=== PATIENT | female | born 1965 | race Two or more races ===

== ENCOUNTER 2024-06-28 10:23 | Inpatient (IN) | payer BC, SELFPAY ==
[2024-06-28] VITALS (20 sets, daily range): BP systolic 110–149; BP diastolic 59–77; PULSE 62–85; TEMP 36.6–36.9; O2SAT 92–99; BMI 34.4; BMI 34.6
--- NOTE | 2024-06-28 11:25 | CT_ITS ---
The [address] [address] Patient Name: FARNAZ JUSTICE MRN: [id number] date: 1965 Sex: F Assigned Patient Location: ER Current Patient Location: ER Accession/Order Number: [id number] Exam Date: 06/28/2024 12:23 Report Date: 06/28/2024 13:04 At the request of: GABRIELLA QUINTERO Procedure: CT abdomen pelvis w con EXAMINATION: CT abdomen pelvis w con HISTORY: abdominal pain COMPARISON: No relevant comparison available. TECHNIQUE: CT images were created with IV contrast. Axial, Coronal, and Sagittal images. Dose reduction techniques were achieved by using automated exposure control and/or adjustment of mA and/or kV according to patient size and/or use of iterative reconstruction technique. FINDINGS: LUNG BASES: Dependent opacities, atelectasis is favored LIVER: Diffuse hypoattenuation consistent with hepatic steatosis BILIARY: Suspected gallbladder wall thickening along the fundus, axial image 47. Small amount of pericholecystic fluid. Layering hyperdensity likely gallbladder sludge. PANCREAS: Mild peripancreatic stranding SPLEEN: No enlargement or focal lesion. ADRENALS: 8mm soft tissue density left adrenal nodule KIDNEYS: No mass, obstruction, or calcification. BOWEL/MESENTERY: No visible mass, obstruction, or bowel wall thickening. AORTA/VASCULAR: No aneurysm or dissection. RETROPERITONEUM: No mass or adenopathy. LYMPH NODES: No adenopathy. URINARY BLADDER: No visible focal wall thickening, lesion, or calculus. PELVIC ORGANS: Hysterectomy ABDOMINAL WALL: No mass or hernia. BONES: No bony lesion or fracture. OTHER: Negative. CT/CT abdomen pelvis w con IMPRESSION: Peripancreatic and pericholecystic inflammatory changes. I favor acute pancreatitis without evidence of necrosis. The differential diagnosis would include acute cholecystitis Electronically authenticated by: NICHO DODSON Date: 06/28/2024 13:04
--- NOTE | 2024-06-28 11:26 | ECG_ITS ---
The [facility] Test Date: 2024-06-28 Pat Name: FARNAZ JUSTICE Department: Room: - Gender: Female [employer] Coordinator: : 1965 Requested By: Samara Kimball Order Number: [id number] Reading MD: ELDOIA MIKE Measurements Intervals [place] Rate: 62 P: 57 NM: 160 QRS: 27 QRSD: 94 T: 38 QT: 426 QTc: 430 Interpretive Statements 1100 Sinus rhythm [address] depression 9130 borderline ECG No previous ECG available for comparison Electronically Signed On 06-28-2024 22:44:40 EDT by ELODIA MIKE
[2024-06-28] MEDS: MORPHINE SULFATE 2 MG/ML SYRINGE 4 MG IV (11:30)
[2024-06-28] MEDS: ONDANSETRON PF 4 MG/2 ML VIAL IV (11:30)
[2024-06-28 11:34] LABS: Basophils Absolute Auto 0.1 10^3/uL (0.0-0.1); Basophils Percent Auto 0.4 % (0.2-2.0); Eosinophils Absolute Auto 0.1 10^3/uL (0.0-0.7); Eosinophils Percent Auto 0.4 % (0.9-7.0); Hemoglobin 13.9 g/dL (12.0-16.0); Immature Granulocytes Abs Auto 0.06 10^3/uL (0.00-0.03); Immature Granulocytes Pct Auto 0.5 % (0.0-0.5); Lymphocytes Percent Auto 7.7 % (20.5-60.0); Mean Corpuscular HGB Conc 30.9 g/dL (29.9-35.2); Mean Corpuscular Hemoglobin 28.3 pg (26.7-34.0); Mean Corpuscular Volume 91.6 fL (81.0-99.0); Mean Platelet Volume 10.7 fL (9.5-13.5); Monocytes Absolute Auto 0.6 10^3/uL (0.3-0.8); Monocytes Percent Auto 5.1 % (1.7-12.0); Neutrophils Absolute Auto 10.9 10^3/uL (1.4-6.5); Neutrophils Percent Auto 85.9 % (43.0-75.0); Platelet Count 257 10^3/uL (150-450); Red Blood Count 4.91 10^6/uL (4.20-5.40); Red Cell Distribution Width 12.6 % (11.0-15.0); White Blood Count 12.7 10^3/uL (4.0-11.0)
[2024-06-28 11:49] LABS: Lactate/Lactic Acid 1.6 mmol/L (0.4-2.0)
[2024-06-28 11:50] LABS: Alanine Aminotransferase 103 U/L (14-59); Albumin Globulin Ratio 1.1; Albumin Level 4.2 g/dL (3.4-5.0); Alkaline Phosphatase 57 U/L (46-116); Anion Gap 14.7; Aspartate Amino Transferase 113 U/L (15-37); Bilirubin Total 0.8 mg/dL (0.2-1.0); Calcium 9.4 mg/dL (8.5-10.1); Carbon Dioxide 24.7 mmol/L (21.0-32.0); Chloride 106 mmol/L (98-107); Estimated GFR (African America >60 (>=60 mL/min/1.73m^2); Estimated GFR (Non-African Ame >60 (>=60 mL/min/1.73m^2); Globulin 3.8 g/dL; Glucose 156 mg/dL (74-106); Potassium 3.4 mmol/L (3.5-5.1); Sodium 142 mmol/L (136-145); Troponin I High Sensitivity <4.0 pg/mL (4.0-51.3)
[2024-06-28] MEDS: LACTATED RINGER'S SOLUTION 1,000 ML 1000 ML IV (12:39)
--- NOTE | 2024-06-28 13:14 | US_ITS ---
The [address] [address] Patient Name: FARNAZ JUSTICE MRN: [id number] date: 1965 Sex: F Assigned Patient Location: ER Current Patient Location: ER Accession/Order Number: [id number] Exam Date: 06/28/2024 13:25 Report Date: 06/28/2024 14:53 At the request of: GABRIELLA QUINTERO Procedure: US right upper quadrant EXAM: US right upper quadrant HISTORY: GB eval COMPARISON: None. TECHNIQUE: Grayscale, color and Doppler FINDINGS: The liver is prominent in size measuring 19.9 cm in length. Normal contour. Diffuse increase in hepatic echotexture with no focal mass. Hepatopedal flow in the main portal vein with velocity of 30 cm/s. The visualized pancreatic body is heterogeneous with no focal mass The gallbladder is enlarged in size measuring 11.8 cm. Echogenic layering material likely cholelithiasis and gallbladder sludge. The gallbladder wall is thickened measuring 7.1 mm. Negative sonographic Yang sign. The common bile duct measures 9.1 mm. The right kidney is normal measuring 10.4 x 5.5 x 4.9 cm. No solid mass or hydronephrosis US/US right upper quadrant IMPRESSION: Cholecystitis with underlying cholelithiasis/gallbladder sludge Hepatic steatosis Electronically authenticated by: NICHO DODSON Date: 06/28/2024 14:53
[2024-06-28] MEDS: MORPHINE SULFATE 4 MG/ML VIAL IV (15:16)
[2024-06-28] MEDS: PIPERACILLIN SODIUM/TAZOBACTAM 4.5 GM in 0.9 % SODIUM CHLORIDE 50 ML IV (15:17)
--- NOTE | 2024-06-28 16:08 | ED.GENADUL1 ---
HPI HPI - General Adult General Chief complaint: Abdominal Pain Stated complaint: NAUSEA, ABDOMINAL PAIN Time Seen by Provider: 06/28/24 10:39 Source: patient Mode of arrival: walk-in Limitations: no limitations History of Present Illness HPI narrative: 59-year-old female to the emergency department with chief complaint of epigastric pain. Patient reports last evening she began to experience a boring epigastric pain that went through to her back. It has been persistent since onset. It is worse with eating. She denies any fever, sweats, chills. She has had nausea and vomiting overnight. She has never had anything like this before. She does have a gallbladder. Related Data Home Medications ?Medication ?Instructions ?Recorded ?Confirmed atenolol 50 mg tablet 50 mg PO BEDTIME 06/28/24 06/28/24 ergocalciferol (vitamin D2) 1,250 1,250 mcg PO .q week 06/28/24 06/28/24 mcg (50,000 unit) capsule levothyroxine 50 mcg tablet 50 mcg PO DAILY 06/28/24 06/28/24 sertraline 50 mg tablet 75 mg PO DAILY 06/28/24 06/28/24 simvastatin 20 mg tablet 20 mg PO BEDTIME 06/28/24 06/28/24 Allergies Allergy/AdvReac Type Severity Reaction Status Date / Time codeine AdvReac Severe Nausea Verified 06/28/24 10:30 Opioid HPI Opioid Management Most Recent Opioid Data: Last Pain Scale 3 06/28/24 15:16 06/28/24 Last MAR Pain Assessment 06/28/24 15:16 Last ORT Total Score 0 06/28/24 16:03 06/28/24 Last ORT Risk Category Low Risk 06/28/24 16:03 06/28/24 Review of Systems ROS Status of ROS 10 or more systems reviewed and unremarkable except as noted in history and below PFSH PFSH Social History Little interest or pleasure in doing things: not at all Feeling down, depressed, or hopeless: not at all Exam Narrative Exam Narrative: VITALS: I have reviewed the triage vital signs. GENERAL: Uncomfortable appearing elderly female holding epigastrium NEURO: Alert and oriented. Moves all extremities. Face is symmetric and expressive. EYES: PERRL. No scleral icterus or conjunctival injection. No discharge. HENT: Normocephalic, atraumatic. Hearing is grossly intact. Nares grossly patent and without discharge. Mucous membranes moist. NECK: No JVD. Patient moves neck without restriction. CARDIO: Rhythm regular. Normal rate. No murmur, rub, or gallop. Pulses equal bilaterally in the upper and lower extremity. No lower extremity edema. PULM: Lungs clear to auscultation in all gao. No wheezes, rales, or rhonchi. No conversational dyspnea. No splinting, stridor, or accessory muscle use. GI/: Abdomen is soft. Epigastric tenderness. Normoactive bowel sounds. EXTREMITIES: Symmetric muscle bulk. No joint swelling. No clubbing, cyanosis, or deformity. SKIN: Warm and dry. Normal turgor. No rash or lesions appreciated. PSYCH: Mood, affect, and interaction is appropriate to the setting. Constitutional Vital Signs, click to edit/add: Last Vital Signs Temp 97.8 F 06/28/24 10:27 Pulse 85 06/28/24 15:30 Resp 21 H 06/28/24 15:30 BP 129/77 06/28/24 15:00 Pulse Ox 97 06/28/24 15:30 Course Vital Signs Vital signs: Vital Signs Temperature 97.8 F 06/28/24 10:27 Pulse Rate 76 06/28/24 10:27 Respiratory Rate 20 06/28/24 10:27 Blood Pressure 124/61 06/28/24 10:27 Pulse Oximetry 98 06/28/24 10:27 Temperature 97.8 F 06/28/24 10:27 Pulse Rate 85 06/28/24 15:30 Respiratory Rate 21 H 06/28/24 15:30 Blood Pressure 129/77 06/28/24 15:00 Pulse Oximetry 97 06/28/24 15:30 Medical Decision Making [facility] Narrative Medical decision making narrative: 59-year-old female to the emergency department chief complaint of abdominal pain. Vital stable, the patient is afebrile. She does have significant epigastric tenderness. Morphine and Zofran ordered for symptoms. Basic labs, EKG, CT scan ordered. Patient agrees with this plan. She does have a mild leukocytosis. No major electrolyte abnormalities. Her ALT AST are mildly elevated. Normal alkaline phosphatase. Normal bilirubin. Her lipase is significantly elevated. CT scan concerning for pancreatitis and cholecystitis. No evidence of necrotizing pancreatitis or acute complication. Ultrasound is ordered to better characterize is consistent with cholecystitis. Mildly dilated common bile duct. Case was discussed with the on-call surgeon Dr. Lilly. He recommended antibiotics. He will see the patient in consultation. Recommend admission to the hospitalist. Plan for cholecystectomy after her pancreatitis has improved. Patient was reexamined. Additional dose of morphine was ordered as her pain is returning. Case was discussed with Dr. Espinal who agreed admit this patient to his service. Medical Records Medical records reviewed: Yes I reviewed the patient's medical records Lab Data Lab results reviewed: Yes I reviewed the patient's lab results Labs: Lab Results 06/28/24 Range/Units 10:35 WBC 12.7 H (4.0-11.0) 10^3/uL RBC 4.91 (4.20-5.40) 10^6/uL Hgb 13.9 (12.0-16.0) g/dL Hct 45.0 (36.0-48.0) % MCV 91.6 (81.0-99.0) fL MCH 28.3 (26.7-34.0) pg MCHC 30.9 (29.9-35.2) g/dL RDW 12.6 (11.0-15.0) % Plt Count 257 (150-450) 10^3/uL MPV 10.7 (9.5-13.5) fL Neut % (Auto) 85.9 H (43.0-75.0) % Lymph % (Auto) 7.7 L (20.5-60.0) % [place] % (Auto) 5.1 (1.7-12.0) % Eos % (Auto) 0.4 L (0.9-7.0) % Baso % (Auto) 0.4 (0.2-2.0) % Neut # (Auto) 10.9 H (1.4-6.5) 10^3/uL Lymph # (Auto) 1.0 L (1.2-3.8) 10^3/uL [place] # (Auto) 0.6 (0.3-0.8) 10^3/uL Eos # (Auto) 0.1 (0.0-0.7) 10^3/uL Baso # (Auto) 0.1 (0.0-0.1) 10^3/uL Abs Immat Gran (auto) 0.06 H (0.00-0.03) 10^3/uL Imm/Tot Granulo (auto) 0.5 (0.0-0.5) % Sodium 142 (136-145) mmol/L Potassium 3.4 L (3.5-5.1) mmol/L Chloride 106 (98-107) mmol/L Carbon Dioxide 24.7 (21.0-32.0) mmol/L Anion Gap 14.7 BUN 16.0 (7.0-18.0) mg/dL Creatinine 0.89 (0.55-1.02) mg/dL Est GFR ( Amer) >60 (>=60 mL/min/1.73m^2) Est GFR (Non-Af Amer) >60 (>=60 mL/min/1.73m^2) BUN/Creatinine Ratio 18.0 Glucose 156 H (74-106) mg/dL Lactate 1.6 (0.4-2.0) mmol/L Calcium 9.4 (8.5-10.1) mg/dL Total Bilirubin 0.8 (0.2-1.0) mg/dL AST 113 H (15-37) U/L ALT 103 H (14-59) U/L Alkaline Phosphatase 57 (46-116) U/L Troponin I High Sens <4.0 L (4.0-51.3) pg/mL Total Protein 8.0 (6.4-8.2) g/dL Albumin 4.2 (3.4-5.0) g/dL Globulin 3.8 g/dL Albumin/Globulin Ratio 1.1 Lipase 4361.0 H* (16.0-77.0) U/L Imaging Data CT scan - abdomen: Attestation: I have reviewed the pertinent imaging results. Radiologist's impression: ITS Impressions Abdomen/Pelvis CT 06/28/24 11:25 IMPRESSION: Peripancreatic and pericholecystic inflammatory changes. I favor acute pancreatitis without evidence of necrosis. The differential diagnosis would include acute cholecystitis Electronically authenticated by: NICHO DODSON Date: 06/28/2024 13:04 Upper Quadrant Ultrasound 06/28/24 13:14 IMPRESSION: Cholecystitis with underlying cholelithiasis/gallbladder sludge Hepatic steatosis Electronically authenticated by: NICHO DODSON Date: 06/28/2024 14:53 ECG Data Attestation: I personally reviewed and interpreted this ECG as follows: (Normal sinus rhythm. No STEMI. Normal QTc. ) Discharge Plan Discharge Chief Complaint: Abdominal Pain Clinical Impression: Acute gallstone pancreatitis, Acute cholecystitis Patient Disposition: Admitted As Inpatient Time of Disposition Decision: 16:26 Condition: Good Discharge Date/Time: 06/28/24 15:55
[2024-06-28] MEDS: PANTOPRAZOLE SODIUM 40 MG VIAL IV (19:34)
[2024-06-28] MEDS: LACTATED RINGER'S SOLUTION 1,000 ML 100 ML IV (19:35)
--- NOTE | 2024-06-28 19:46 | PC.NURSE ---
compression socks applied at this time
--- NOTE | 2024-06-28 19:47 | P.HP_ITS ---
HPI H&P: HPI History of Present Illness Chief complaint: NAUSEA, ABDOMINAL PAIN, Gallstone, Pancreatitis Narrative: Patient was seen and evaluated in the emergency room secondary to increasing nausea and abdominal pain. Workup in the emergency room found patient to have acute gallstone pancreatitis. She is admitted for workup and treatment of same When I saw patient up on the medical surgical floor, she was resting comfortably in bed, pain is improved since admission. No more nausea. Discussed with her the need to maintain n.p.o. status. Discussed the fact that she would likely have surgery during this hospitalization assuming her pancreas and liver enzymes improve quickly Opioid HPI Opioid Management Most Recent Pain and Opioid Data: Last Pain Scale 3 06/28/24 15:16 06/28/24 Last Pain Assessment 06/28/24 19:00 Last MAR Pain Assessment 06/28/24 15:16 Last ORT Total Score 0 06/28/24 16:03 06/28/24 Last ORT Risk Category Low Risk 06/28/24 16:03 06/28/24 Review of Systems ROS Status of ROS 10 or more systems reviewed and unremark able except as noted in history and below PFSH PFSH Medical History High blood cholesterol ?E78.00 - Pure hypercholesterolemia, unspecified (ICD-10) Osteoporosis ?M81.0 - Age-related osteoporosis without current pathological fracture (ICD- 10) Thyroid disease ?E07.9 - Disorder of thyroid, unspecified (ICD-10) Hypertension ?I10 - Essential (primary) hypertension (ICD-10) Surgical History History of total left knee replacement ?Z96.652 - Presence of left artificial knee joint (ICD-10) History of hysterectomy ?Z90.710 - Acquired absence of both cervix and uterus (ICD-10) Social History Within the past year, how often did you have six or more drinks on one occasion: never Smoking status: Never smoker Non-prescribed substance use: denies use Known occupational exposures/hazards: No Highest level of school completed/degree received: 6th grade Are you now , , , , never or living with a partner: In a typical week, how many times do you talk on the telephone with family, friends, or neighbors: 3 or more times per week How often do you get together with friends or relatives: 3 or more times per week How often do you attend roman catholic or muslim services: 4 or more times per year Do you belong to any clubs or organizations such as roman catholic groups unions, fraternal or athletic groups, or school groups: no Total score: 3 Score interpretation: A score of greater than or equal to 2 indicates the lowest level of social isolation. Little interest or pleasure in doing things: not at all Feeling down, depressed, or hopeless: not at all Feel stressed/tense/nervous/anxious/difficulty sleeping: not at all Due to disability, difficulty making decisions: No Do you think of yourself as: straight/heterosexual Meds Home Medications and Allergies Home Medications ?Medication ?Instructions ?Recorded ?Confirmed ?Type atenolol 50 mg tablet 50 mg PO BEDTIME 06/28/24 06/28/24 History ergocalciferol (vitamin D2) 1,250 1,250 mcg PO .q week 06/28/24 06/28/24 History mcg (50,000 unit) capsule levothyroxine 50 mcg tablet 50 mcg PO DAILY 06/28/24 06/28/24 History sertraline 50 mg tablet 75 mg PO DAILY 06/28/24 06/28/24 History simvastatin 20 mg tablet 20 mg PO BEDTIME 06/28/24 06/28/24 History Allergies Allergy/AdvReac Type Severity Reaction Status Date / Time codeine AdvReac Severe Nausea Verified 06/28/24 10:30 Exam Constitutional Vital Signs, click to edit/add: Last Vital Signs Temp 98.1 F 06/28/24 16:03 Pulse 71 06/28/24 16:03 Resp 16 06/28/24 16:03 BP 127/77 06/28/24 16:03 Pulse Ox 95 06/28/24 16:03 O2 Del Method Room Air 06/28/24 16:03 Documenting provider has reviewed patient's vital signs: yes Common normals: no apparent distress Chest Common normals: inspection of chest normal and palpation of chest normal Respiratory Common normals: normal respiratory effort, no retractions and no use of accessory muscles Cardio Common normals: regular rate, regular rhythm and no murmurs GI Common normals: Normal to inspection, nondistended, normoactive bowel sounds present and soft to palpation; tender Palpation: tender Details: epigastric, LUQ, RUQ and Yang's sign and rebound tenderness present; no guarding and not rigid Extremity Common normals: normal to inspection and full ROM Results Labs Labs: Short CBC 06/28/24 Range/Units 10:35 WBC 12.7 H (4.0-11.0) 10^3/uL Hgb 13.9 (12.0-16.0) g/dL Hct 45.0 (36.0-48.0) % Plt Count 257 (150-450) 10^3/uL BMP 06/28/24 10:35 Sodium 142 Potassium 3.4 L Chloride 106 Carbon Dioxide 24.7 BUN 16.0 Creatinine 0.89 Glucose 156 H Calcium 9.4 Liver Function 06/28/24 Range/Units 10:35 Total Bilirubin 0.8 (0.2-1.0) mg/dL AST 113 H (15-37) U/L ALT 103 H (14-59) U/L Alkaline Phosphatase 57 (46-116) U/L Albumin 4.2 (3.4-5.0) g/dL Assessment and Plan Assessment and Plan (1) Acute cholecystitis: (2) Acute gallstone pancreatitis: (3) High blood cholesterol: (4) Thyroid disease: (5) Hypertension: (6) Elevated liver function tests: (7) Leukocytosis: (8) Hypokalemia: Plan Admission findings: Leukocytosis, elevated lipase, elevated liver function tests, CT scan and ultrasound consistent with acute gallstone pancreatitis. No findings on CT scan consistent with a ascending cholangitis. Does have mild rebound tenderness but no rigidity to her abdominal exam. Acute gallstone pancreatitis-n.p.o. status, IV fluid resuscitation. IV antibiotics to include Zosyn. Cultures pending. Serial laboratory evaluations. Hepatic steatosis-monitor as an outpatient Hypertension-hold off on oral medications, will you supplement with IV as needed Hypercholesterolemia-can hold off on medications. Hypothyroidism-hold off on medications currently Depression-hold off on medications Hypokalemia-supplement IV Admission status: Patient with acute onset of gallstone pancreatitis with elevated liver function test and leukocytosis with mild acute abdominal findings. N.p.o. status, IV fluids, IV antibiotics, surgical consultation, medically necessary treatment will span 2 midnights. Inpatient status.
[2024-06-28 21:04] LABS: Bilirubin Urine NEGATIVE (NEGATIVE); Blood Urine MODERATE (NEGATIVE); Clarity Urine CLEAR (CLEAR); Color Urine YELLOW (YELLOW); Glucose Urine UA NEGATIVE (NEGATIVE); Ketones Urine NEGATIVE (NEGATIVE); Leukocyte Esterase Urine NEGATIVE (NEGATIVE); Nitrite Urine NEGATIVE (NEGATIVE); Protein Urine NEGATIVE (NEG/TRACE); Specific Gravity Urine 1.015 (1.005-1.025); Urobilinogen Urine 0.2 EU/dL (0.2-1.0)
[2024-06-28 21:10] LABS: Bacteria Urine NONE SEEN #/HPF (NONE SEEN); Cast Seen? NONE SEEN #/LPF (NONE SEEN); Crystals Seen? None Seen #/HPF (None Seen); Mucus Urine NONE SEEN (NONE SEEN); RBC Urine 0-2 #/HPF (0-2); Squamous Epithelial Cell Urine FEW #/LPF (NONE/RARE); Transitional Epi Cells Urine RARE #/LPF (NONE SEEN); Urine Culture Indicated NO
[2024-06-28] MEDS: POTASSIUM CHLORIDE IN WATER 10 MEQ/100 ML PREMIX 100 MEQ IV ×3 (21:14→23:11)
[2024-06-29] VITALS (8 sets, daily range): BP systolic 106–131; BP diastolic 63–89; PULSE 73–89; TEMP 36.4–37.2; O2SAT 93–96
[2024-06-29] MEDS: POTASSIUM CHLORIDE IN WATER 10 MEQ/100 ML PREMIX 100 MEQ IV (00:31)
[2024-06-29] MEDS: PIPERACILLIN SODIUM/TAZOBACTAM 3.375 GM in 0.9 % SODIUM CHLORIDE 50 ML IV ×3 (01:16→16:17)
[2024-06-29] MEDS: LACTATED RINGER'S SOLUTION 1,000 ML 100 ML IV ×2 (05:40→16:17)
--- NOTE | 2024-06-29 06:13 | P.PN_ITS ---
Progress Note: Subjective Subjective Interval history: Pain continues to improve Exam Constitutional Vital Signs, click to edit/add: Last Vital Signs Temp 98 F 06/29/24 04:30 Pulse 85 06/29/24 04:30 Resp 18 06/29/24 04:30 BP 126/76 06/29/24 04:30 Pulse Ox 93 L 06/29/24 04:30 O2 Del Method Room Air 06/29/24 04:30 Documenting provider has reviewed patient's vital signs: yes Common normals: no apparent distress Chest Common normals: inspection of chest normal and palpation of chest normal Respiratory Common normals: normal respiratory effort, no retractions and no use of accessory muscles Cardio Common normals: regular rate, regular rhythm and no murmurs GI Common normals: Normal to inspection, nondistended, normoactive bowel sounds present and soft to palpation; tender Palpation: tender Details: epigastric, LUQ, RUQ and Yang's sign; no guarding, not rigid and no rebound tenderness present (Rebound tenderness has resolved) Extremity Common normals: normal to inspection and full ROM Progress Note: Objective Labs Labs: Short CBC 06/28/24 Range/Units 10:35 WBC 12.7 H (4.0-11.0) 10^3/uL Hgb 13.9 (12.0-16.0) g/dL Hct 45.0 (36.0-48.0) % Plt Count 257 (150-450) 10^3/uL BMP 06/28/24 10:35 Sodium 142 Potassium 3.4 L Chloride 106 Carbon Dioxide 24.7 BUN 16.0 Creatinine 0.89 Glucose 156 H Calcium 9.4 Liver Function 06/28/24 Range/Units 10:35 Total Bilirubin 0.8 (0.2-1.0) mg/dL AST 113 H (15-37) U/L ALT 103 H (14-59) U/L Alkaline Phosphatase 57 (46-116) U/L Albumin 4.2 (3.4-5.0) g/dL Urine 06/28/24 Range/Units 20:49 Urine Color Yellow (YELLOW) Urine Clarity Clear (CLEAR) Urine pH 6.0 (5.0-9.0) Ur Specific [place] 1.015 (1.005-1.025) Urine Protein Negative (NEG/TRACE) mg/dL Urine Glucose (UA) Negative (NEGATIVE) mg/dL Progress Note: A&P Assessment and Plan (1) Acute cholecystitis: (2) Acute gallstone pancreatitis: (3) High blood cholesterol: (4) Thyroid disease: (5) Hypertension: (6) Elevated liver function tests: (7) Leukocytosis: (8) Hypokalemia: Plan Admission findings: Leukocytosis, elevated lipase, elevated liver function tests, CT scan and ultrasound consistent with acute gallstone pancreatitis. No findings on CT scan consistent with a ascending cholangitis. Does have mild rebound tenderness but no rigidity to her abdominal exam. Acute gallstone pancreatitis-lipase much improved but still persisting, maintain n.p.o. status, leukocytosis has resolved Hepatic steatosis-monitor as an outpatient Hypertension-hold off on oral medications, will you supplement with IV as needed Hypercholesterolemia-can hold off on medications. Hypothyroidism-hold off on medications currently Iron deficiency anemia-as well as possible dilution dilutional anemiaIron def anemia - possible dil anemia Depression-hold off on medications Hypokalemia-supplement IV Admission status: Patient with acute onset of gallstone pancreatitis with elevated liver function test and leukocytosis with mild acute abdominal findings. N.p.o. status, IV fluids, IV antibiotics, surgical consultation, medically necessary treatment will span 2 midnights. Inpatient status. ?
[2024-06-29 06:22] LABS: Ammonia 13 umol/L (11-32)
[2024-06-29 06:24] LABS: INR 1.01; Magnesium 2.2 mg/dL (1.8-2.4); Partial Thromboplastin Time 26.7 sec (22.3-36.2); Prothrombin Time 10.7 sec (9.0-11.6)
[2024-06-29 06:32] LABS: Basophils Percent Auto 0.5 % (0.2-2.0); Eosinophils Absolute Auto 0.1 10^3/uL (0.0-0.7); Eosinophils Percent Auto 1.3 % (0.9-7.0); Hematocrit 39.6 % (36.0-48.0); Hemoglobin 12.5 g/dL (12.0-16.0); Immature Granulocytes Abs Auto 0.02 10^3/uL (0.00-0.03); Immature Granulocytes Pct Auto 0.2 % (0.0-0.5); Lymphocytes Absolute Auto 0.9 10^3/uL (1.2-3.8); Lymphocytes Percent Auto 9.9 % (20.5-60.0); Mean Corpuscular HGB Conc 31.6 g/dL (29.9-35.2); Mean Corpuscular Hemoglobin 28.7 pg (26.7-34.0); Mean Platelet Volume 10.3 fL (9.5-13.5); Monocytes Absolute Auto 0.6 10^3/uL (0.3-0.8); Monocytes Percent Auto 6.6 % (1.7-12.0); Neutrophils Absolute Auto 7.1 10^3/uL (1.4-6.5); Neutrophils Percent Auto 81.5 % (43.0-75.0); Platelet Count 215 10^3/uL (150-450); Red Blood Count 4.35 10^6/uL (4.20-5.40); Red Cell Distribution Width 12.6 % (11.0-15.0); White Blood Count 8.7 10^3/uL (4.0-11.0)
[2024-06-29 06:47] LABS: Alanine Aminotransferase 66 U/L (14-59); Albumin Level 3.3 g/dL (3.4-5.0); Alkaline Phosphatase 45 U/L (46-116); Aspartate Amino Transferase 40 U/L (15-37); Bilirubin Direct 0.2 mg/dL (0.0-0.2); Bilirubin Total 0.6 mg/dL (0.2-1.0); Globulin 3.3 g/dL; Total Protein 6.6 g/dL (6.4-8.2)
--- NOTE | 2024-06-29 09:00 | CM.NOTE ---
Rounds made with Dr. Espinal, discussed with pt diagnosis and plan of care. General surgery will consult on pt for further recommendations.
--- NOTE | 2024-06-29 09:04 | PM.GSCN ---
History of Present Illness Consult details Consult date: 06/29/24 Reason for consult: gallstones Requesting physician: Sb Espinal Narrative: Steffi Kelley is a 59-year-old female who presented to the ED yesterday with complaints of epigastric pain nausea and vomiting and was found to have acute pancreatitis secondary to gallbladder disease. Her pain is much better today. She rated her pain as a 10 out of 10 on admission but is now down to normal. Her white blood count is down from 12,000 to 8000 today and her serum lipase is down from 4000 to 828 today. She is currently on antibiotics. I performed colonoscopy on her earlier this year at [facility]. Her PCP is Dr. Samara Kimball. She underwent a CT scan of the abdomen and pelvis which have been reviewed as well as an ultrasound of the gallbladder showing cholelithiasis and cholecystitis along with pancreatitis. She denies any alcohol use. Review of Systems ROS Status of ROS 10 or more systems reviewed and unremarkable except as noted in history and below [facility] Medical History High blood cholesterol ?E78.00 - Pure hypercholesterolemia, unspecified (ICD-10) Osteoporosis ?M81.0 - Age-related osteoporosis without current pathological fracture (ICD-10) Thyroid disease ?E07.9 - Disorder of thyroid, unspecified (ICD-10) Hypertension ?I10 - Essential (primary) hypertension (ICD-10) Surgical History History of total left knee replacement ?Z96.652 - Presence of left artificial knee joint (ICD-10) History of hysterectomy ?Z90.710 - Acquired absence of both cervix and uterus (ICD-10) Social History Within the past year, how often did you have six or more drinks on one occasion: never Smoking status: Never smoker Non-prescribed substance use: denies use Known occupational exposures/hazards: No Highest level of school completed/degree received: 6th grade Are you now , , , , never or living with a partner: In a typical week, how many times do you talk on the telephone with family, friends, or neighbors: 3 or more times per week How often do you get together with friends or relatives: 3 or more times per week How often do you attend taoist or orthodox services: 4 or more times per year Do you belong to any clubs or organizations such as taoist groups unions, fraternal or athletic groups, or school groups: no Total score: 3 Score interpretation: A score of greater than or equal to 2 indicates the lowest level of social isolation. Little interest or pleasure in doing things: not at all Feeling down, depressed, or hopeless: not at all Feel stressed/tense/nervous/anxious/difficulty sleeping: not at all Due to disability, difficulty making decisions: No Do you think of yourself as: straight/heterosexual Meds Home Medications and Allergies Home Medications ?Medication ?Instructions ?Recorded ?Confirmed ?Type atenolol 50 mg tablet 50 mg PO BEDTIME 06/28/24 06/28/24 History ergocalciferol (vitamin D2) 1,250 1,250 mcg PO .q week 06/28/24 06/28/24 History mcg (50,000 unit) capsule levothyroxine 50 mcg tablet 50 mcg PO DAILY 06/28/24 06/28/24 History sertraline 50 mg tablet 75 mg PO DAILY 06/28/24 06/28/24 History simvastatin 20 mg tablet 20 mg PO BEDTIME 06/28/24 06/28/24 History Allergies Allergy/AdvReac Type Severity Reaction Status Date / Time codeine AdvReac Severe Nausea Verified 06/28/24 10:30 Exam Constitutional Vital Signs, click to edit/add: Last Vital Signs Temp 98 F 06/29/24 04:30 Pulse 85 06/29/24 04:30 Resp 18 06/29/24 04:30 BP 126/76 06/29/24 04:30 Pulse Ox 93 L 06/29/24 04:30 O2 Del Method Room Air 06/29/24 04:30 Documenting provider has reviewed patient's vital signs: yes Results Labs Labs: Abnormal lab results 06/28/24 06/28/24 06/29/24 Range/Units 10:35 20:49 05:58 WBC 12.7 H (4.0-11.0) 10^3/uL Neut % (Auto) 85.9 H 81.5 H (43.0-75.0) % Lymph % (Auto) 7.7 L 9.9 L (20.5-60.0) % Eos % (Auto) 0.4 L (0.9-7.0) % Neut # (Auto) 10.9 H 7.1 H (1.4-6.5) 10^3/uL Lymph # (Auto) 1.0 L 0.9 L (1.2-3.8) 10^3/uL Abs Immat Gran (auto) 0.06 H (0.00-0.03) 10^3/uL Potassium 3.4 L (3.5-5.1) mmol/L Glucose 156 H (74-106) mg/dL AST 113 H 40 H (15-37) U/L ALT 103 H 66 H (14-59) U/L Alkaline Phosphatase 45 L (46-116) U/L Troponin I High Sens <4.0 L (4.0-51.3) pg/mL Albumin 3.3 L (3.4-5.0) g/dL Lipase 4361.0 H* 828.0 H (16.0-77.0) U/L Urine Occult Blood Moderate A (NEGATIVE) Urine WBC 2-5 A (NONE SEEN) #/HPF Ur Squamous Epith Cells Few A (NONE/RARE) #/LPF Ur Transition Epith Cell Rare A (NONE SEEN) #/LPF Diabetes panel 06/28/24 06/29/24 Range/Units 10:35 05:58 Sodium 142 (136-145) mmol/L Potassium 3.4 L (3.5-5.1) mmol/L Chloride 106 (98-107) mmol/L Carbon Dioxide 24.7 (21.0-32.0) mmol/L BUN 16.0 (7.0-18.0) mg/dL Creatinine 0.89 (0.55-1.02) mg/dL Glucose 156 H (74-106) mg/dL Calcium 9.4 (8.5-10.1) mg/dL AST 113 H 40 H (15-37) U/L ALT 103 H 66 H (14-59) U/L Alkaline Phosphatase 57 45 L (46-116) U/L Total Protein 8.0 6.6 (6.4-8.2) g/dL Albumin 4.2 3.3 L (3.4-5.0) g/dL Calcium panel 06/28/24 06/29/24 Range/Units 10:35 05:58 Calcium 9.4 (8.5-10.1) mg/dL Albumin 4.2 3.3 L (3.4-5.0) g/dL Pituitary panel 06/28/24 Range/Units 10:35 Sodium 142 (136-145) mmol/L Potassium 3.4 L (3.5-5.1) mmol/L Chloride 106 (98-107) mmol/L Carbon Dioxide 24.7 (21.0-32.0) mmol/L BUN 16.0 (7.0-18.0) mg/dL Creatinine 0.89 (0.55-1.02) mg/dL Glucose 156 H (74-106) mg/dL Calcium 9.4 (8.5-10.1) mg/dL Adrenal panel 06/28/24 06/29/24 Range/Units 10:35 05:58 Sodium 142 (136-145) mmol/L Potassium 3.4 L (3.5-5.1) mmol/L Chloride 106 (98-107) mmol/L Carbon Dioxide 24.7 (21.0-32.0) mmol/L BUN 16.0 (7.0-18.0) mg/dL Creatinine 0.89 (0.55-1.02) mg/dL Glucose 156 H (74-106) mg/dL Calcium 9.4 (8.5-10.1) mg/dL Total Bilirubin 0.8 0.6 (0.2-1.0) mg/dL AST 113 H 40 H (15-37) U/L ALT 103 H 66 H (14-59) U/L Alkaline Phosphatase 57 45 L (46-116) U/L Total Protein 8.0 6.6 (6.4-8.2) g/dL Albumin 4.2 3.3 L (3.4-5.0) g/dL All other labs normal. Imaging Abdomen CT scan report/results: report reviewed Abdominal ultrasound report/results: report reviewed Assessment and Plan Assessment and Plan (1) Acute cholecystitis: (2) Acute gallstone pancreatitis: (3) High blood cholesterol: (4) Thyroid disease: (5) Hypertension: (6) Elevated liver function tests: (7) Leukocytosis: (8) Hypokalemia: Plan Treat underlying gallstone pancreatitis by remaining NPO and IV fluids and allowing lipase to normalize and then proceed with robotic / laparoscopic cholecystectomy. Risks benefits alternatives to cholecystectomy may include infection, bleeding, bile duct injury, blood clots to legs or lungs, pneumonia, heart attack, stroke, and/or .
[2024-06-29] MEDS: PANTOPRAZOLE SODIUM 40 MG VIAL IV (09:07)
[2024-06-29] MEDS: FLU VAC QS 2024(6MS UP)CEL/PF 60 MCG/0.5 ML SYRINGE IM (09:08)
[2024-06-29 10:24] LABS: Anion Gap 17.9; BUN Creatinine Ratio 14.7; Carbon Dioxide 23.3 mmol/L (21.0-32.0); Chloride 106 mmol/L (98-107); Estimated GFR (African America >60 (>=60 mL/min/1.73m^2); Estimated GFR (Non-African Ame >60 (>=60 mL/min/1.73m^2); Glucose 100 mg/dL (74-106); Potassium 4.2 mmol/L (3.5-5.1); Sodium 143 mmol/L (136-145)
[2024-06-29] MEDS: KETOROLAC TROMETHAMINE 30 MG/ML VIAL IVP (13:31)
[2024-06-30] VITALS (9 sets, daily range): BP systolic 99–120; BP diastolic 55–73; PULSE 68–81; TEMP 36.4–36.9; O2SAT 94–98
[2024-06-30] MEDS: PIPERACILLIN SODIUM/TAZOBACTAM 3.375 GM in 0.9 % SODIUM CHLORIDE 50 ML IV ×3 (00:46→17:59)
[2024-06-30] MEDS: LACTATED RINGER'S SOLUTION 1,000 ML 100 ML IV ×3 (02:07→22:15)
[2024-06-30 05:42] LABS: Basophils Absolute Auto 0.1 10^3/uL (0.0-0.1); Basophils Percent Auto 0.7 % (0.2-2.0); Eosinophils Absolute Auto 0.3 10^3/uL (0.0-0.7); Eosinophils Percent Auto 3.8 % (0.9-7.0); Hematocrit 37.3 % (36.0-48.0); Hemoglobin 11.7 g/dL (12.0-16.0); Immature Granulocytes Abs Auto 0.02 10^3/uL (0.00-0.03); Immature Granulocytes Pct Auto 0.3 % (0.0-0.5); Lymphocytes Absolute Auto 1.2 10^3/uL (1.2-3.8); Lymphocytes Percent Auto 15.2 % (20.5-60.0); Mean Corpuscular HGB Conc 31.4 g/dL (29.9-35.2); Mean Corpuscular Hemoglobin 28.5 pg (26.7-34.0); Mean Corpuscular Volume 90.8 fL (81.0-99.0); Mean Platelet Volume 10.1 fL (9.5-13.5); Monocytes Absolute Auto 0.6 10^3/uL (0.3-0.8); Monocytes Percent Auto 7.3 % (1.7-12.0); Neutrophils Absolute Auto 5.5 10^3/uL (1.4-6.5); Neutrophils Percent Auto 72.7 % (43.0-75.0); Platelet Count 211 10^3/uL (150-450); Red Blood Count 4.11 10^6/uL (4.20-5.40); Red Cell Distribution Width 12.4 % (11.0-15.0); White Blood Count 7.6 10^3/uL (4.0-11.0)
[2024-06-30 05:57] LABS: Magnesium 2.2 mg/dL (1.8-2.4)
[2024-06-30 05:58] LABS: INR 1.03; Partial Thromboplastin Time 29.1 sec (22.3-36.2); Prothrombin Time 10.9 sec (9.0-11.6)
[2024-06-30 06:03] LABS: Alanine Aminotransferase 41 U/L (14-59); Albumin Globulin Ratio 0.9; Alkaline Phosphatase 43 U/L (46-116); Anion Gap 12.7; Aspartate Amino Transferase 19 U/L (15-37); Bilirubin Total 0.5 mg/dL (0.2-1.0); Calcium 8.6 mg/dL (8.5-10.1); Carbon Dioxide 24.8 mmol/L (21.0-32.0); Chloride 108 mmol/L (98-107); Estimated GFR (African America >60 (>=60 mL/min/1.73m^2); Estimated GFR (Non-African Ame >60 (>=60 mL/min/1.73m^2); Globulin 3.4 g/dL; Glucose 79 mg/dL (74-106); Potassium 3.5 mmol/L (3.5-5.1); Sodium 142 mmol/L (136-145); Total Protein 6.4 g/dL (6.4-8.2)
--- NOTE | 2024-06-30 07:24 | PM.GSPRC ---
Date of procedure: 07/01/24 Indications for Procedure: Gallstone pancreatitis Pre-op diagnosis: Gallstone pancreatitis Post-op diagnosis: same as pre-op Procedure: Robotic da Jessica cholecystectomy with IC-Green Findings: Cholecystitis with cholelithiasis Anesthesia: RAJESH Surgeon: Aric Lilly Procedure Summary: After again explaining the risks and benefits of the procedure in the preoperative care unit consent was obtained. ?The patient was taken back to the operative room and placed on the operative room table. General endotracheal anesthesia was induced and preoperative antibiotics were given. ?Appropriate time-out was performed. ?Right arm was?tucked at the side. ?Then the bed was positioned appropriately. ?The abdomen was prepped and draped in normal sterile fashion. A periumbilical incision was made. ?Dissection was carried down to the fascia. ?Fascia was elevated with tabatha clamps and bluntly with Souza technique.. A 12 mm port was placed into the abdomen and the abdomen was insufflated, there were no complications with insufflation. ?The scope and camera was brought in and then 3 more ports were placed. An 8?mm port was placed in the right lateral position. Two additional?8 mm Davinci ports were placed, 8 cm to the left and one to the right of the umbilicus. ?The patient was then placed in reverse Trendelenburg position and slightly turned to the left. The Digitilitiinci robot was docked. The 4th arm was used to grasp the dome of the gallbladder superiorly. ?The peritoneal attachments were taken down with meticulous dissection laterally and medially from the gallbladder. ?At this point the infundibular gallbladder was retracted laterally and a critical view was obtained. The gallbladder tore during dissection and stones spilled out. ?With the cystic duct inferiorly cystic artery medially and the liver posteriorly. ?Two clips were placed on the patient side and 1 on the specimen side of both the cystic duct and the cystic artery. ?These were then excised. ?The remainder of the gallbladder was taken off of the gallbladder fossa using electrocautery. The gallbladder was then removed through the umbilical port using Endo-Catch bag. ?Gallstones that could be retrieved were retrieved. There were cholesterol stones. The gallbladder fossa was visualized again to confirm no bleeding and no leak from the cystic duct. The robot was undocked from the patient. The abdomen was deinsufflated.? The umbilical incision fascia was closed with a [id number] 0 Vicryl. The skin was closed at all the incisions with 4 0 Monocryl. All incisions and underlying muscle was anesthetized with local anesthetic.? Steri-Strips were then placed over the incisions. The patient was extubated and had no immediate postoperative complications. Patient was taken to the PACU in stable condition. Framing Manager: PAUL Rojas Estimated blood loss (mL): 10 Specimens: Gallbladder and stones Complications: No Condition: stable Disposition: PACU
--- NOTE | 2024-06-30 07:26 | PM.GSPN ---
Progress Note: A&P Assessment and Plan (1) Acute cholecystitis: (2) Acute gallstone pancreatitis: (3) High blood cholesterol: (4) Thyroid disease: (5) Hypertension: (6) Elevated liver function tests: (7) Leukocytosis: (8) Hypokalemia: Plan Begin clear liquids today only and n.p.o. after midnight and anticipate robotic/laparoscopic cholecystectomy tomorrow at 1 PM. Risks benefits and alternatives of surgery may include infection, bleeding, bile duct injury, blood clots to legs or lungs, pneumonia, heart attack, stroke, and/or . She voiced understanding of all the above and wished to proceed. Subjective Subjective Patient reports: no new complaints, feels better and pain is less Interval history: Patient denies any abdominal pain this morning or last night. She is feeling much better. Serum lipase is down to 98 today. Liver enzymes are also decreased. Begin clear liquids today only. Anticipate robotic cholecystectomy with possible open cholecystectomy tomorrow.Risks benefits and alternatives to surgery explained to patient. Exam Constitutional Vital Signs, click to edit/add: Last Vital Signs Temp 97.9 F 06/30/24 04:00 Pulse 71 06/30/24 04:00 Resp 18 06/30/24 04:00 BP 99/55 06/30/24 04:00 Pulse Ox 96 06/30/24 04:00 O2 Del Method Room Air 06/30/24 04:00 GI Common normals: Normal to inspection, nondistended, normoactive bowel sounds present and soft to palpation Palpation: guarding (Epigastrium) Date and Time Date and Time of Service Date of service: 06/30/24 Time: 07:15
--- NOTE | 2024-06-30 08:44 | P.PN_ITS ---
Progress Note: Subjective Subjective Interval history: Pain is minimal this morning. Exam Constitutional Vital Signs, click to edit/add: Last Vital Signs Temp 98.5 F 06/30/24 07:32 Pulse 81 06/30/24 07:32 Resp 16 06/30/24 07:32 BP 117/69 06/30/24 07:32 Pulse Ox 95 06/30/24 07:32 O2 Del Method Room Air 06/30/24 04:00 Documenting provider has reviewed patient's vital signs: yes Common normals: no apparent distress Chest Common normals: inspection of chest normal and palpation of chest normal Respiratory Common normals: normal respiratory effort, no retractions and no use of accessory muscles Cardio Common normals: regular rate, regular rhythm and no murmurs GI Other: Deferred to general surgery exam Extremity Common normals: normal to inspection and full ROM Progress Note: Objective Labs Labs: Short CBC 06/30/24 Range/Units 05:30 WBC 7.6 (4.0-11.0) 10^3/uL Hgb 11.7 L (12.0-16.0) g/dL Hct 37.3 (36.0-48.0) % Plt Count 211 (150-450) 10^3/uL BMP 06/29/24 06/30/24 05:58 05:30 Sodium 143 142 Potassium 4.2 3.5 Chloride 106 108 H Carbon Dioxide 23.3 24.8 BUN 11.0 10.0 Creatinine 0.75 0.77 Glucose 100 79 Calcium 9.0 8.6 Liver Function 06/30/24 Range/Units 05:30 Total Bilirubin 0.5 (0.2-1.0) mg/dL AST 19 (15-37) U/L ALT 41 (14-59) U/L Alkaline Phosphatase 43 L (46-116) U/L Albumin 3.0 L (3.4-5.0) g/dL Progress Note: A&P Assessment and Plan (1) Acute cholecystitis: (2) Acute gallstone pancreatitis: (3) High blood cholesterol: (4) Thyroid disease: (5) Hypertension: (6) Elevated liver function tests: (7) Leukocytosis: (8) Hypokalemia: Plan Admission findings: Leukocytosis, elevated lipase, elevated liver function tests, CT scan and ultrasound consistent with acute gallstone pancreatitis. No findings on CT scan consistent with a ascending cholangitis. Does have mild rebound tenderness but no rigidity to her abdominal exam. Acute gallstone pancreatitis-lipase almost to normal, was suspected will be normal tomorrow, discussed case with general surgery, with the likelihood is normal tomorrow we will proceed with cholecystectomy tomorrow. Clear liquid diet today. Hepatic steatosis-monitor as an outpatient Hypertension-hold off on oral medications, will you supplement with IV as needed-so far still stable Hypercholesterolemia-can hold off on medications. Hypothyroidism-hold off on medications currently Iron deficiency anemia-as well as possible dilution dilutional anemiaIron def anemia - possible dil anemia Depression-hold off on medications Hypokalemia-supplement IV Admission status: Patient with acute onset of gallstone pancreatitis with elevated liver function test and leukocytosis with mild acute abdominal findings. N.p.o. status, IV fluids, IV antibiotics, surgical consultation, medically necessary treatment will span 2 midnights. Inpatient status. ?
[2024-06-30] MEDS: PANTOPRAZOLE SODIUM 40 MG VIAL IV (08:52)
[2024-06-30] MEDS: KETOROLAC TROMETHAMINE 30 MG/ML VIAL IVP (08:52)
--- NOTE | 2024-06-30 09:09 | CM.NOTE ---
Rounds made with Dr. Espinal. Dr. Espinal discussed surgical plan with Dr. Lilly. Plan for surgery today if Lipase continues to decrease. May have clear liquids today.
--- NOTE | 2024-06-30 11:57 | NUTR.NU ---
Provided low fat diet guidelines for gallbladder disease and answered pt's questions. She expressed understanding, stated she will read handouts so she is prepared to follow diet after cholecystectomy. Will continue to follow PRN.
[2024-07-01] VITALS (19 sets, daily range): BP systolic 109–147; BP diastolic 68–93; PULSE 68–92; TEMP 36.3–36.9; O2SAT 89–97
[2024-07-01] MEDS: PIPERACILLIN SODIUM/TAZOBACTAM 3.375 GM in 0.9 % SODIUM CHLORIDE 50 ML IV ×3 (01:07→16:20)
[2024-07-01 05:59] LABS: Basophils Percent Auto 0.7 % (0.2-2.0); Eosinophils Absolute Auto 0.4 10^3/uL (0.0-0.7); Eosinophils Percent Auto 6.2 % (0.9-7.0); Hematocrit 37.9 % (36.0-48.0); Immature Granulocytes Abs Auto 0.01 10^3/uL (0.00-0.03); Immature Granulocytes Pct Auto 0.2 % (0.0-0.5); Lymphocytes Absolute Auto 1.3 10^3/uL (1.2-3.8); Lymphocytes Percent Auto 22.2 % (20.5-60.0); Mean Corpuscular HGB Conc 31.7 g/dL (29.9-35.2); Mean Corpuscular Hemoglobin 28.3 pg (26.7-34.0); Mean Corpuscular Volume 89.4 fL (81.0-99.0); Monocytes Absolute Auto 0.4 10^3/uL (0.3-0.8); Monocytes Percent Auto 6.8 % (1.7-12.0); Neutrophils Absolute Auto 3.7 10^3/uL (1.4-6.5); Neutrophils Percent Auto 63.9 % (43.0-75.0); Platelet Count 213 10^3/uL (150-450); Red Blood Count 4.24 10^6/uL (4.20-5.40); Red Cell Distribution Width 12.4 % (11.0-15.0); White Blood Count 5.8 10^3/uL (4.0-11.0)
--- NOTE | 2024-07-01 06:06 | P.PN_ITS ---
Progress Note: Subjective Subjective Interval history: No change in pain today. Exam Constitutional Vital Signs, click to edit/add: Last Vital Signs Temp 97.9 F 07/01/24 04:00 Pulse 68 07/01/24 04:00 Resp 18 07/01/24 04:00 BP 109/68 07/01/24 04:00 Pulse Ox 95 07/01/24 04:00 O2 Del Method Room Air 07/01/24 04:00 Documenting provider has reviewed patient's vital signs: yes Common normals: no apparent distress Chest Common normals: inspection of chest normal and palpation of chest normal Respiratory Common normals: normal respiratory effort, no retractions and no use of accessory muscles Cardio Common normals: regular rate, regular rhythm and no murmurs GI Common normals: Normal to inspection, nondistended, normoactive bowel sounds present, soft to palpation and non-tender Extremity Common normals: normal to inspection and full ROM Progress Note: Objective Labs Labs: Short CBC 07/01/24 Range/Units 05:46 WBC 5.8 (4.0-11.0) 10^3/uL Hgb 12.0 (12.0-16.0) g/dL Hct 37.9 (36.0-48.0) % Plt Count 213 (150-450) 10^3/uL BMP 06/30/24 05:30 Sodium 142 Potassium 3.5 Chloride 108 H Carbon Dioxide 24.8 BUN 10.0 Creatinine 0.77 Glucose 79 Calcium 8.6 Liver Function 06/30/24 Range/Units 05:30 Total Bilirubin 0.5 (0.2-1.0) mg/dL AST 19 (15-37) U/L ALT 41 (14-59) U/L Alkaline Phosphatase 43 L (46-116) U/L Albumin 3.0 L (3.4-5.0) g/dL Progress Note: A&P Assessment and Plan (1) Acute cholecystitis: (2) Acute gallstone pancreatitis: (3) High blood cholesterol: (4) Thyroid disease: (5) Hypertension: (6) Elevated liver function tests: (7) Leukocytosis: (8) Hypokalemia: Plan Admission findings: Leukocytosis, elevated lipase, elevated liver function tests, CT scan and ultrasound consistent with acute gallstone pancreatitis. No findings on CT scan consistent with a ascending cholangitis. Does have mild rebound tenderness but no rigidity to her abdominal exam. Acute gallstone pancreatitis-lipase at least today. Likely surgery later today. Hepatic steatosis-monitor as an outpatient Hypertension-hold off on oral medications, will you supplement with IV as needed-so far still stable Hypercholesterolemia-can hold off on medications. Hypothyroidism-hold off on medications currently Iron deficiency anemia-as well as possible dilution dilutional anemiaIron def anemia - possible dil anemia Depression-hold off on medications Hypokalemia-supplement IV Admission status: Patient with acute onset of gallstone pancreatitis with elevated liver function test and leukocytosis with mild acute abdominal findings. N.p.o. status, IV fluids, IV antibiotics, surgical consultation, medically necessary treatment will span 2 midnights. Inpatient status. ?
[2024-07-01 06:17] LABS: Magnesium 2.2 mg/dL (1.8-2.4)
[2024-07-01 06:19] LABS: Alanine Aminotransferase 30 U/L (14-59); Albumin Globulin Ratio 0.9; Alkaline Phosphatase 42 U/L (46-116); Anion Gap 15.1; Aspartate Amino Transferase 14 U/L (15-37); BUN Creatinine Ratio 4.1; Bilirubin Total 0.5 mg/dL (0.2-1.0); Calcium 8.9 mg/dL (8.5-10.1); Carbon Dioxide 24.3 mmol/L (21.0-32.0); Chloride 108 mmol/L (98-107); Estimated GFR (African America >60 (>=60 mL/min/1.73m^2); Estimated GFR (Non-African Ame >60 (>=60 mL/min/1.73m^2); Globulin 3.5 g/dL; Glucose 92 mg/dL (74-106); Potassium 3.4 mmol/L (3.5-5.1); Sodium 144 mmol/L (136-145); Total Protein 6.5 g/dL (6.4-8.2)
[2024-07-01 06:21] LABS: INR 1.02; Partial Thromboplastin Time 29.3 sec (22.3-36.2); Prothrombin Time 10.8 sec (9.0-11.6)
--- NOTE | 2024-07-01 09:00 | CM.NOTE ---
Rounds made with Dr. Espinal, pt scheduled for OR today at 1:[address] Espinal will evaluate pt after OR for discharge planning.
[2024-07-01] MEDS: PANTOPRAZOLE SODIUM 40 MG VIAL IV (09:26)
[2024-07-01] MEDS: LACTATED RINGER'S SOLUTION 1,000 ML 100 ML IV ×2 (09:33→17:52)
[2024-07-01] MEDS: LACTATED RINGER'S SOLUTION 1,000 ML 50 ML IV (10:24)
[2024-07-01] MEDS: INDOCYANINE GREEN 25 MG VIAL INJ (11:25)
[2024-07-01] MEDS: BUPIVACAINE HCL 0.5% PF 50 MG/10 ML VIAL 20 ML INJ (13:32)
[2024-07-01] MEDS: ACETAMINOPHEN 325 MG TABLET 650 MG PO (16:17)
[2024-07-02] VITALS: BP 118/77; PULSE 78; TEMP 36.8; O2SAT 95
[2024-07-02] MEDS: PIPERACILLIN SODIUM/TAZOBACTAM 3.375 GM in 0.9 % SODIUM CHLORIDE 50 ML IV ×2 (01:36→09:31)
[2024-07-02 04:00] VITALS: BP 111/68; PULSE 82; TEMP 36.8; O2SAT 94
[2024-07-02] MEDS: LACTATED RINGER'S SOLUTION 1,000 ML 100 ML IV (05:49)
[2024-07-02 05:52] LABS: Basophils Percent Auto 0.2 % (0.2-2.0); Eosinophils Percent Auto 0.3 % (0.9-7.0); Hematocrit 35.9 % (36.0-48.0); Hemoglobin 11.5 g/dL (12.0-16.0); Immature Granulocytes Abs Auto 0.01 10^3/uL (0.00-0.03); Immature Granulocytes Pct Auto 0.1 % (0.0-0.5); Lymphocytes Absolute Auto 1.1 10^3/uL (1.2-3.8); Lymphocytes Percent Auto 11.9 % (20.5-60.0); Mean Corpuscular Hemoglobin 28.7 pg (26.7-34.0); Mean Corpuscular Volume 89.5 fL (81.0-99.0); Monocytes Absolute Auto 0.7 10^3/uL (0.3-0.8); Monocytes Percent Auto 7.2 % (1.7-12.0); Neutrophils Absolute Auto 7.4 10^3/uL (1.4-6.5); Neutrophils Percent Auto 80.3 % (43.0-75.0); Platelet Count 230 10^3/uL (150-450); Red Blood Count 4.01 10^6/uL (4.20-5.40); Red Cell Distribution Width 12.3 % (11.0-15.0); White Blood Count 9.2 10^3/uL (4.0-11.0)
[2024-07-02 06:06] LABS: Magnesium 2.1 mg/dL (1.8-2.4)
--- NOTE | 2024-07-02 06:06 | P.DS_ITS ---
DS: Providers Provider Date of admission: 06/28/24 15:55 Primary care physician: Non-Staff Physician, Consults: 06/28/24 18:48 Consult to Pharmacy Routine Consulting Provider: Reason for consultation: Please [place] me when Med Rec is Updated Has provider been notified: No DS: Diagnosis Discharge Diagnosis (1) Acute cholecystitis: (2) Acute gallstone pancreatitis: (3) High blood cholesterol: (4) Thyroid disease: (5) Hypertension: (6) Elevated liver function tests: (7) Leukocytosis: (8) Hypokalemia: Plan Admission findings: Leukocytosis, elevated lipase, elevated liver function tests, CT scan and ultrasound consistent with acute gallstone pancreatitis. No findings on CT scan consistent with a ascending cholangitis. Does have mild rebound tenderness but no rigidity to her abdominal exam. Acute gallstone pancreatitis-lipase at least today. Likely surgery later today. Hepatic steatosis-monitor as an outpatient Hypertension-hold off on oral medications, will you supplement with IV as needed-so far still stable Hypercholesterolemia-can hold off on medications. Hypothyroidism-hold off on medications currently Iron deficiency anemia-as well as possible dilution dilutional anemiaIron def anemia - possible dil anemia Depression-hold off on medications Hypokalemia-supplement IV Admission status: Patient with acute onset of gallstone pancreatitis with elevated liver function test and leukocytosis with mild acute abdominal findings. N.p.o. status, IV fluids, IV antibiotics, surgical consultation, medically necessary treatment will span 2 midnights. Inpatient status. ? DS: Summary Hospital Course Hospital Course: Scented to the emergency room with increasing abdominal pain. In the emergency room she was found to have acute gallstone pancreatitis. Case was discussed with general surgery, felt comfortable with maintaining here as long as the p ancreatitis but improved. She was placed n.p.o. status. After 2-1/2 days her pancreatic enzymes are much improved. He was taken to the operating room yesterday. No complications in the immediate postoperative period. She feels great this morning. Lipase is up slightly compared to previous day. At this point we will continue to advance her diet if she tolerates that she will be discharged home in improving condition. Medications see this. Follow-up with her PCP within the next week. Status at Discharge Overall status at discharge: patient is not back to baseline Time Spent with Patient Time attestation: Total time spent providing and/or coordinating discharge services: Time spent: greater than 30 minutes Exam Constitutional Vital Signs, click to edit/add: Last Vital Signs Temp 98.2 F 07/02/24 04:00 Pulse 82 07/02/24 04:00 Resp 18 07/02/24 04:00 BP 111/68 07/02/24 04:00 Pulse Ox 94 L 07/02/24 04:00 O2 Del Method Room Air 07/02/24 04:00 O2 Flow Rate 0 07/01/24 07:32 Documenting provider has reviewed patient's vital signs: yes Common normals: no apparent distress Chest Common normals: inspection of chest normal and palpation of chest normal Respiratory Common normals: normal respiratory effort, no retractions and no use of accessory muscles Cardio Common normals: regular rate, regular rhythm and no murmurs GI Other: Deferred exam to general surgery Extremity Common normals: normal to inspection and full ROM DS: Data Data Completed and Pending Labs on day of discharge: Labs from last 24 hours 07/02/24 07/01/24 05:40 05:46 WBC 9.2 RBC 4.01 L Hgb 11.5 L Hct 35.9 L MCV 89.5 MCH 28.7 MCHC 32.0 RDW 12.3 Plt Count 230 MPV 10.0 Neut % (Auto) 80.3 H Lymph % (Auto) 11.9 L [place] % (Auto) 7.2 Eos % (Auto) 0.3 L Baso % (Auto) 0.2 Neut # (Auto) 7.4 H Lymph # (Auto) 1.1 L [place] # (Auto) 0.7 Eos # (Auto) 0.0 Baso # (Auto) 0.0 Abs Immat Gran (auto) 0.01 Imm/Tot Granulo (auto) 0.1 PT 10.8 INR 1.02 APTT 29.3 Sodium 144 Potassium 3.4 L Chloride 108 H Carbon Dioxide 24.3 Anion Gap 15.1 BUN 3.0 L Creatinine 0.73 Est GFR ( Amer) >60 Est GFR (Non-Af Amer) >60 BUN/Creatinine Ratio 4.1 Glucose 92 Calcium 8.9 Magnesium 2.2 Total Bilirubin 0.5 AST 14 L ALT 30 Alkaline Phosphatase 42 L Total Protein 6.5 Albumin 3.0 L Globulin 3.5 Albumin/Globulin Ratio 0.9 Lipase 106.0 H Discharge Plan Discharge Disposition: Home, Self-Care Condition: Good Discharge Medications: Continued atenolol 50 mg tablet 50 mg PO BEDTIME levothyroxine 50 mcg tablet 50 mcg PO DAILY sertraline 50 mg tablet 75 mg PO DAILY simvastatin 20 mg tablet 20 mg PO BEDTIME ergocalciferol (vitamin D2) 1,250 mcg (50,000 unit) capsule 1,250 mcg PO .q week Rx Instructions: twice weekly Print Language: French Patient Instructions: Pancreatitis (DC), Laparoscopic Cholecystectomy (DC) Forms: Portal Instructions Follow Up Appointments: @ 9:15am [facility] Dr. Lilly [address] [facility] [phone]
[2024-07-02 06:08] LABS: INR 1.02; Partial Thromboplastin Time 22.3 sec (22.3-36.2); Prothrombin Time 10.8 sec (9.0-11.6)
[2024-07-02 06:10] LABS: Alanine Aminotransferase 33 U/L (14-59); Albumin Globulin Ratio 0.9; Alkaline Phosphatase 45 U/L (46-116); Anion Gap 11.3; Aspartate Amino Transferase 24 U/L (15-37); BUN Creatinine Ratio 5.3; Bilirubin Total 0.5 mg/dL (0.2-1.0); Calcium 8.7 mg/dL (8.5-10.1); Carbon Dioxide 27.3 mmol/L (21.0-32.0); Chloride 108 mmol/L (98-107); Estimated GFR (African America >60 (>=60 mL/min/1.73m^2); Estimated GFR (Non-African Ame >60 (>=60 mL/min/1.73m^2); Globulin 3.5 g/dL; Glucose 105 mg/dL (74-106); Potassium 3.6 mmol/L (3.5-5.1); Sodium 143 mmol/L (136-145); Total Protein 6.5 g/dL (6.4-8.2)
[2024-07-02 08:00] VITALS: BP 114/73; PULSE 73; TEMP 36.6; O2SAT 95
[2024-07-02] MEDS: PANTOPRAZOLE SODIUM 40 MG VIAL IV (09:31)
--- NOTE | 2024-07-02 09:47 | CM.NOTE ---
Rounds made with Dr. Espinal, pt will discharge to home. No discharge needs identified.
--- NOTE | 2024-07-05 12:06 | CM.DCFOLLOWU ---
Person spoke with:patient How are you feeling? great How is your pain?none Did you understand your discharge instructions?yes Do you have any questions about your discharge instructions?no Were you given any prescriptions at discharge?no Were you able to get your prescriptions filled? N/A Do you understand how to take your medications as ordered? yes Do you have any questions about your follow up appointment and do you plan to keep your follow up appointment? no questions, follow up reviewed Is there anything else that you would like to discuss?no Questions/Comments/Concerns/Other:none
== END 2024-07-02 11:32 | disposition home or self-care (01) | DRG 417 ==
LOC: ER 15:59 → MS 16:02
PROVIDERS: Surgery; Admitting Provider Family Medicine; Emergency Provider Student in an Organized Health Care Education/Training Program; Family Provider Family Medicine; Visit Provider Family Medicine
PROC: 0FT44ZZ Resection of Gallbladder, Percutaneous Endoscopic Approach (ICD-10-PCS; principal; 2024-07-01 12:00)
DX: K80.00 Calculus of gallbladder with acute cholecystitis without obstruction (principal); K85.10 Biliary acute pancreatitis without necrosis or infection; E78.00 Pure hypercholesterolemia, unspecified; I10 Essential (primary) hypertension; E87.6 Hypokalemia; D72.829 Elevated white blood cell count, unspecified; R79.89 Other specified abnormal findings of blood chemistry; K76.0 Fatty (change of) liver, not elsewhere classified; E03.9 Hypothyroidism, unspecified; F32.A Depression, unspecified; Z96.652 Presence of left artificial knee joint; Z90.710 Acquired absence of both cervix and uterus; M81.0 Age-related osteoporosis without current pathological fracture; D50.9 Iron deficiency anemia, unspecified; Z79.899 Other long term (current) drug therapy; Z79.890 Hormone replacement therapy; E66.01 Morbid (severe) obesity due to excess calories; Z68.34 Body mass index [BMI] 34.0-34.9, adult
CPT/HCPCS: 36415; 74177; 76705; 80048; 80053; 80076; 81001; 82140; 83605; 83690; 83735; 84484; 85025; 85610; 85730; 88304; 90674; 93005; 94667; 94668; 94761; 96361; 96365; 96375; 96376; 99285; J0665; J1100; J1805; J1885; J2250; J2270; J2405; J2543; J2704; J3010; J3480; Q9967